=== PATIENT | male | born 1955 | race Caucasian/White ===

== ENCOUNTER 2022-06-14 10:07 | Inpatient (IN) | payer MEDICARE ==
[~2022-06-14] VITALS: Ht 175.3 cm; Wt 57.2 kg
[2022-06-14 10:08] VITALS: BP 165/98
[2022-06-14 10:40] LABS: BASO % 0.3 % (0.0-1.0); EOS # 0.2 10*3/uL (0.0-0.4); EOS % 2.7 % (1.0-4.0); LYMPH # 1.2 10*3/uL (1.3-4.4); LYMPH % 18.4 % (27.0-41.0); MEAN CELL VOLUME 92.9 fl (80.0-94.0); MEAN CORPUSCULAR HGB 32.2 pg (27.0-31.0); MEAN CORPUSCULAR HGB CONC 34.7 g/dl (33.0-37.0); MEAN PLATELET VOLUME 9.7 fl (9.6-12.3); MONO # 0.4 10*3/uL (0.1-1.0); MONO % 6.2 % (3.0-9.0); NEUT # 4.5 10*3/uL (2.3-7.9); NEUT % 71.9 % (47.0-73.0); PLATELET COUNT AUTOMATED 205 10*3/uL (130-400); RED BLOOD COUNT 4.63 10*6/uL (4.50-5.90); RED CELL DISTRI WIDTH 13.2 % (0-14.5); WHITE BLOOD COUNT 6.3 10*3/uL (4.8-10.8)
[2022-06-14 10:52] LABS: ACT PARTIAL THROMBO TIME 27.9 SECONDS (20.0-32.1)
[2022-06-14 10:55] LABS: ALKALINE PHOSPHATASE 82 U/L (45-117); BUN 12 mg/dl (7-24); CHLORIDE 103 mmol/L (98-107); LIPASE 169 U/L (73-393); POTASSIUM 3.2 mmol/L (3.5-5.1); SGOT/AST 21 IU/L (3-35); SGPT/ALT 23 U/L (12-78); SODIUM 137 mmol/L (136-145); TOTAL PROTEIN 8.3 gm/dL (6.4-8.2)
[2022-06-14 11:31] VITALS: BP 147/77
[2022-06-14] MEDS ORDERED: AMLODIPINE BESY10 MG PO (12:51)
[2022-06-14] MEDS ORDERED: LIPITOR80 MG PO (12:52)
[2022-06-14] MEDS ORDERED: BACLOFEN5 MG PO (12:53)
[2022-06-14] MEDS ORDERED: CELECOXIB200 M1 PO (12:54)
[2022-06-14] MEDS ORDERED: HYDROXYZINE HCL10 MG PO (12:55)
[2022-06-14] MEDS ORDERED: [UNRECOGNIZED DRUG - OTHER] PO (12:57)
[2022-06-14] MEDS ORDERED: PANTOPRAZOLE SO40 MG PO (12:57)
[2022-06-14] MEDS ORDERED: SERTRALINE HYD100 MG PO (12:59)
[2022-06-14] MEDS ORDERED: VIAGRA100 MG PO (13:00)
[2022-06-14 13:36] LABS: BILIRUBIN Negative (Negative); BLOOD 1+ (Negative); CLARITY Clear (Clear); COLOR Yellow (Yellow); GLUCOSE Negative (Negative); KETONE Negative (Negative); LEUKO ESTERASE Negative (Negative); NITRITE Negative (Negative); PH 7.5 (4.5-8.0); UROBILINOGEN 0.2 E.U./dl (0.0-1.0)
[2022-06-14 13:52] LABS: BACTERIA TRACE; WBC 0-2 wbc/hpf (0-5)
[2022-06-14 15:40] VITALS: BP 129/80
[2022-06-14 15:50] VITALS: BP 147/96
[2022-06-14 20:00] VITALS: BP 129/78
[2022-06-15] VITALS (11 sets, daily range): BP systolic 119–155; BP diastolic 57–95
[2022-06-15 06:32] LABS: BASO % 0.3 % (0.0-1.0); EOS # 0.1 10*3/uL (0.0-0.4); EOS % 0.6 % (1.0-4.0); HEMATOCRIT 42.1 % (42.0-52.0); LYMPH # 0.9 10*3/uL (1.3-4.4); LYMPH % 7.8 % (27.0-41.0); MEAN CELL VOLUME 91.5 fl (80.0-94.0); MEAN CORPUSCULAR HGB 32.6 pg (27.0-31.0); MEAN CORPUSCULAR HGB CONC 35.6 g/dl (33.0-37.0); MEAN PLATELET VOLUME 9.7 fl (9.6-12.3); MONO # 0.7 10*3/uL (0.1-1.0); MONO % 5.9 % (3.0-9.0); NEUT # 9.5 10*3/uL (2.3-7.9); PLATELET COUNT AUTOMATED 205 10*3/uL (130-400); RED CELL DISTRI WIDTH 13.2 % (0-14.5); WHITE BLOOD COUNT 11.1 10*3/uL (4.8-10.8)
[2022-06-15 07:00] LABS: BUN 15 mg/dl (7-24); CHLORIDE 103 mmol/L (98-107); CREATININE 0.81 mg/dL (0.70-1.30); POTASSIUM 3.4 mmol/L (3.5-5.1); SODIUM 137 mmol/L (136-145)
[2022-06-16] VITALS: BP 138/65
[2022-06-16 07:53] LABS: BASO % 0.1 % (0.0-1.0); HEMATOCRIT 36.7 % (42.0-52.0); LYMPH % 7.4 % (27.0-41.0); MEAN CELL VOLUME 91.3 fl (80.0-94.0); MEAN CORPUSCULAR HGB 31.8 pg (27.0-31.0); MEAN CORPUSCULAR HGB CONC 34.9 g/dl (33.0-37.0); MEAN PLATELET VOLUME 10.1 fl (9.6-12.3); MONO # 1.1 10*3/uL (0.1-1.0); MONO % 8.1 % (3.0-9.0); NEUT # 11.2 10*3/uL (2.3-7.9); PLATELET COUNT AUTOMATED 191 10*3/uL (130-400); RED BLOOD COUNT 4.02 10*6/uL (4.50-5.90); RED CELL DISTRI WIDTH 12.7 % (0-14.5); WHITE BLOOD COUNT 13.3 10*3/uL (4.8-10.8)
[2022-06-16 08:00] VITALS: BP 145/64
[2022-06-16 08:11] LABS: BUN 19 mg/dl (7-24); CHLORIDE 106 mmol/L (98-107); CREATININE 0.64 mg/dL (0.70-1.30); POTASSIUM 3.2 mmol/L (3.5-5.1); SODIUM 138 mmol/L (136-145)
[2022-06-16 12:00] VITALS: BP 136/74
[2022-06-16 16:00] VITALS: BP 138/73
[2022-06-16 20:00] VITALS: BP 131/73
[2022-06-17] VITALS: BP 126/64
[2022-06-17 06:25] LABS: BASO % 0.3 % (0.0-1.0); EOS # 0.1 10*3/uL (0.0-0.4); EOS % 0.7 % (1.0-4.0); HEMATOCRIT 37.1 % (42.0-52.0); LYMPH # 1.5 10*3/uL (1.3-4.4); LYMPH % 12.1 % (27.0-41.0); MEAN CORPUSCULAR HGB 32.1 pg (27.0-31.0); MEAN PLATELET VOLUME 10.5 fl (9.6-12.3); MONO % 8.7 % (3.0-9.0); NEUT # 9.3 10*3/uL (2.3-7.9); NEUT % 77.9 % (47.0-73.0); PLATELET COUNT AUTOMATED 178 10*3/uL (130-400); RED BLOOD COUNT 3.92 10*6/uL (4.50-5.90); RED CELL DISTRI WIDTH 13.1 % (0-14.5)
[2022-06-17 06:26] LABS: MEAN CELL VOLUME 94.6 fl (80.0-94.0)
[2022-06-17 06:27] LABS: BUN 17 mg/dl (7-24); CHLORIDE 105 mmol/L (98-107); POTASSIUM 3.4 mmol/L (3.5-5.1); SODIUM 140 mmol/L (136-145)
[2022-06-17 06:30] LABS: ALKALINE PHOSPHATASE 64 U/L (45-117); CREATININE 0.65 mg/dL (0.70-1.30); SGOT/AST 20 IU/L (3-35); SGPT/ALT 15 U/L (12-78); TOTAL PROTEIN 7.3 gm/dL (6.4-8.2)
[2022-06-17 08:00] VITALS: BP 136/72
[2022-06-17 12:00] VITALS: BP 130/76
[2022-06-17 15:28] VITALS: BP 131/65
[2022-06-17 20:00] VITALS: BP 105/78
[2022-06-18] VITALS: BP 127/72
[2022-06-18 06:35] LABS: BASO % 0.3 % (0.0-1.0); EOS # 0.1 10*3/uL (0.0-0.4); EOS % 1.4 % (1.0-4.0); HEMATOCRIT 40.5 % (42.0-52.0); LYMPH # 1.4 10*3/uL (1.3-4.4); LYMPH % 15.6 % (27.0-41.0); MEAN CELL VOLUME 93.5 fl (80.0-94.0); MEAN CORPUSCULAR HGB 31.9 pg (27.0-31.0); MEAN CORPUSCULAR HGB CONC 34.1 g/dl (33.0-37.0); MEAN PLATELET VOLUME 9.4 fl (9.6-12.3); MONO # 0.8 10*3/uL (0.1-1.0); MONO % 8.5 % (3.0-9.0); NEUT # 6.7 10*3/uL (2.3-7.9); NEUT % 73.8 % (47.0-73.0); PLATELET COUNT AUTOMATED 181 10*3/uL (130-400); RED BLOOD COUNT 4.33 10*6/uL (4.50-5.90); RED CELL DISTRI WIDTH 12.5 % (0-14.5); WHITE BLOOD COUNT 9.1 10*3/uL (4.8-10.8)
[2022-06-18 06:48] LABS: BUN 17 mg/dl (7-24); CHLORIDE 106 mmol/L (98-107); CREATININE 0.74 mg/dL (0.70-1.30); POTASSIUM 4.1 mmol/L (3.5-5.1); SODIUM 140 mmol/L (136-145)
[2022-06-18 08:00] VITALS: BP 127/65
[2022-06-18 12:00] VITALS: BP 130/76
[2022-06-18 16:00] VITALS: BP 125/85
[2022-06-18 20:00] VITALS: BP 135/86
[2022-06-19] VITALS: BP 122/69
[2022-06-19 05:43] LABS: BUN 16 mg/dl (7-24); CHLORIDE 105 mmol/L (98-107); CREATININE 0.69 mg/dL (0.70-1.30); POTASSIUM 4.1 mmol/L (3.5-5.1); SODIUM 141 mmol/L (136-145)
[2022-06-19 06:50] LABS: BASO % 0.4 % (0.0-1.0); EOS # 0.3 10*3/uL (0.0-0.4); EOS % 3.8 % (1.0-4.0); HEMATOCRIT 37.4 % (42.0-52.0); LYMPH # 1.3 10*3/uL (1.3-4.4); LYMPH % 18.6 % (27.0-41.0); MEAN CELL VOLUME 93.7 fl (80.0-94.0); MEAN CORPUSCULAR HGB 32.3 pg (27.0-31.0); MEAN CORPUSCULAR HGB CONC 34.5 g/dl (33.0-37.0); MEAN PLATELET VOLUME 10.5 fl (9.6-12.3); MONO # 0.6 10*3/uL (0.1-1.0); MONO % 8.9 % (3.0-9.0); NEUT # 4.8 10*3/uL (2.3-7.9); PLATELET COUNT AUTOMATED 201 10*3/uL (130-400); RED BLOOD COUNT 3.99 10*6/uL (4.50-5.90); RED CELL DISTRI WIDTH 12.3 % (0-14.5); WHITE BLOOD COUNT 7.1 10*3/uL (4.8-10.8)
[2022-06-19 08:00] VITALS: BP 148/76
[2022-06-19 12:00] VITALS: BP 152/78
[2022-06-19 16:00] VITALS: BP 133/75
[2022-06-19 20:34] VITALS: BP 138/77
[2022-06-20] VITALS: BP 126/72
[2022-06-20 04:18] VITALS: BP 120/68
[2022-06-20 08:00] VITALS: BP 132/72
[2022-06-20 12:00] VITALS: BP 133/70
[2022-06-20] MEDS ORDERED: HYDROCODONE-AC1 EAC1 PO (13:38)
[2022-06-20] MEDS ORDERED: ASPIRIN ADULT L81 M2 PO (13:38)
[2022-06-21] MEDS ORDERED: HYDROCODONE-AC1 EAC1 PO (11:48)
== END 2022-06-20 15:05 | DRG 522 ==
LOC: ED 10:07 → 4E 11:59 → EDHOLD 11:59 → 4E 13:42
PROVIDERS: Emergency Medicine; Family Medicine; Internal Medicine; Orthopaedic Surgery; Student in an Organized Health Care Education/Training Program; ADMIT Student in an Organized Health Care Education/Training Program; ATTEND Student in an Organized Health Care Education/Training Program
PROC: 0SRR0JZ Replacement of Right Hip Joint, Femoral Surface with Synthetic Substitute, Open Approach (ICD-10-PCS; principal; 2022-06-15)
PROC: 3E0T3BZ Introduction of Anesthetic Agent into Peripheral Nerves and Plexi, Percutaneous Approach (ICD-10-PCS; 2022-06-15)
DX: S72.031A Displaced midcervical fracture of right femur, initial encounter for closed fracture (principal); E44.0 Moderate protein-calorie malnutrition; E87.20 Acidosis, unspecified; Z68.1 Body mass index [BMI] 19.9 or less, adult; Z20.822 Contact with and (suspected) exposure to COVID-19; E87.6 Hypokalemia; I10 Essential (primary) hypertension; K21.9 Gastro-esophageal reflux disease without esophagitis; F17.210 Nicotine dependence, cigarettes, uncomplicated; D64.9 Anemia, unspecified; H35.3130 Nonexudative age-related macular degeneration, bilateral, stage unspecified; W18.39XA Other fall on same level, initial encounter; D72.829 Elevated white blood cell count, unspecified; E11.65 Type 2 diabetes mellitus with hyperglycemia; Z88.6 Allergy status to analgesic agent; Z82.49 Family history of ischemic heart disease and other diseases of the circulatory system; Z71.6 Tobacco abuse counseling; Y93.89 Activity, other specified; Y92.89 Other specified places as the place of occurrence of the external cause; Y99.8 Other external cause status

== ENCOUNTER → 2022-06-30 | Outpatient (CLI) | payer MEDICARE ==
[~2022-06-30] MED LIST: AMLODIPINE BESY10 MG PO; ASPIRIN ADULT L81 M2 PO; BACLOFEN5 MG PO; CELECOXIB200 M1 PO; HYDROCODONE-AC1 EAC1 PO; HYDROXYZINE HCL10 MG PO; LIPITOR80 MG PO; PANTOPRAZOLE SO40 MG PO; SERTRALINE HYD100 MG PO; VIAGRA100 MG PO; [UNRECOGNIZED DRUG - OTHER] PO
== END | disposition home or self-care (01) ==
LOC: ORTHO 01:12
PROVIDERS: ATTEND Orthopaedic Surgery
DX: S72.001A Fracture of unspecified part of neck of right femur, initial encounter for closed fracture (principal); X58.XXXA Exposure to other specified factors, initial encounter; Y93.89 Activity, other specified; Y92.89 Other specified places as the place of occurrence of the external cause; Y99.8 Other external cause status

== ENCOUNTER → 2022-08-11 | Outpatient (CLI) | payer MEDICARE | END | disposition home or self-care (01) | LOC: ORTHO 01:22 | PROVIDERS: ATTEND Orthopaedic Surgery | DX: S72.031D Displaced midcervical fracture of right femur, subsequent encounter for closed fracture with routine healing (principal); Z96.641 Presence of right artificial hip joint; X58.XXXD Exposure to other specified factors, subsequent encounter ==

== ENCOUNTER → 2022-08-25 | Outpatient (CLI) | payer MEDICARE | END | disposition home or self-care (01) | LOC: RAD 10:00 | PROVIDERS: ATTEND Orthopaedic Surgery | DX: M80.00XA Age-related osteoporosis with current pathological fracture, unspecified site, initial encounter for fracture (principal) ==

== ENCOUNTER → 2022-10-19 | Day surgery (SDC) | payer OTHER ==
[2022-10-16 14:23] VITALS: BP 113/76
[2022-10-16 16:30] LABS: BASO % 0.3 % (0.0-1.0); EOS # 0.2 10*3/uL (0.0-0.4); EOS % 3.4 % (1.0-4.0); HEMATOCRIT 41.7 % (42.0-52.0); LYMPH # 1.3 10*3/uL (1.3-4.4); LYMPH % 22.9 % (27.0-41.0); MEAN CELL VOLUME 91.6 fl (80.0-94.0); MEAN CORPUSCULAR HGB 31.2 pg (27.0-31.0); MEAN CORPUSCULAR HGB CONC 34.1 g/dl (33.0-37.0); MEAN PLATELET VOLUME 9.8 fl (9.6-12.3); MONO # 0.5 10*3/uL (0.1-1.0); MONO % 8.2 % (3.0-9.0); NEUT # 3.8 10*3/uL (2.3-7.9); PLATELET COUNT AUTOMATED 167 10*3/uL (130-400); RED BLOOD COUNT 4.55 10*6/uL (4.50-5.90); RED CELL DISTRI WIDTH 13.2 % (0-14.5); WHITE BLOOD COUNT 5.9 10*3/uL (4.8-10.8)
[2022-10-16 16:46] LABS: BUN 8 mg/dl (9-23); CHLORIDE 100 mmol/L (98-107); POTASSIUM 3.7 mmol/L (3.4-5.1)
[~2022-10-19] VITALS: Ht 175.2 cm; Wt 59.0 kg
[~2022-10-19] MED LIST changes: +COLACE100 MG PO; +ONDANSETRON HYDR4 M1 PO; +VITAMIN B121000 MC1 PO
[2022-10-19 08:57] VITALS: BP 133/83
[2022-10-19 10:13] VITALS: BP 138/77; BP 140/72
[2022-10-19 10:30] VITALS: BP 138/77
[2022-10-19 10:44] VITALS: BP 126/54
[2022-10-19 11:00] VITALS: BP 133/75
[2022-10-19 11:15] VITALS: BP 131/59
== END | disposition home or self-care (01) ==
LOC: SDC 10-16 14:00
PROVIDERS: ATTEND Surgery
DX: K40.90 Unilateral inguinal hernia, without obstruction or gangrene, not specified as recurrent (principal); I10 Essential (primary) hypertension; K21.9 Gastro-esophageal reflux disease without esophagitis; F17.210 Nicotine dependence, cigarettes, uncomplicated; F41.9 Anxiety disorder, unspecified; Z98.890 Other specified postprocedural states